=== PATIENT | male | born 1960 | race Caucasian/White ===

== ENCOUNTER → 2023-12-19 08:15 | Outpatient (REF) | payer OTHER, SELFPAY | LOC: RAD 08:15 | PROVIDERS: ATTENDING PHYSICIAN Surgery Vascular Surgery; FAMILY PHYSICIAN Internal Medicine | DX: I65.23 Occlusion and stenosis of bilateral carotid arteries (principal); I77.9 Disorder of arteries and arterioles, unspecified | CPT/HCPCS: 93880; 93923; 93925 ==

== ENCOUNTER → 2024-03-10 08:15 | Outpatient (REF) | payer OTHER, SELFPAY | LOC: RAD 08:15 | PROVIDERS: ATTENDING PHYSICIAN Registered Nurse; FAMILY PHYSICIAN Internal Medicine | DX: I77.9 Disorder of arteries and arterioles, unspecified (principal) | CPT/HCPCS: 93922; 93925; 93978 ==

== ENCOUNTER → 2024-06-16 08:14 | Outpatient (REF) | payer OTHER, SELFPAY | LOC: RAD 08:14 | PROVIDERS: ATTENDING PHYSICIAN Surgery Vascular Surgery; FAMILY PHYSICIAN Internal Medicine | DX: I65.23 Occlusion and stenosis of bilateral carotid arteries (principal); I77.9 Disorder of arteries and arterioles, unspecified | CPT/HCPCS: 93880; 93922 ==

== ENCOUNTER → 2024-12-24 13:15 | Outpatient (REF) | payer BC, SELFPAY | LOC: RAD 13:15 | PROVIDERS: ATTENDING PHYSICIAN Surgery Vascular Surgery; FAMILY PHYSICIAN Internal Medicine | DX: I77.9 Disorder of arteries and arterioles, unspecified (principal) | CPT/HCPCS: 93922 ==

== ENCOUNTER → 2025-06-29 08:09 | Outpatient (REF) | payer BC, SELFPAY | LOC: RAD 08:09 | PROVIDERS: ATTENDING PHYSICIAN Surgery Vascular Surgery; FAMILY PHYSICIAN Internal Medicine | DX: I65.21 Occlusion and stenosis of right carotid artery (principal); I77.9 Disorder of arteries and arterioles, unspecified | CPT/HCPCS: 93880; 93922 ==